=== PATIENT | female | born 1950 | race Caucasian/White ===

== ENCOUNTER 2023-03-07 10:44 | Outpatient (CLI) | payer MEDICARE, OTHER | END 2023-03-07 10:45 | disposition home or self-care (01) | LOC: RAD 10:44 | PROVIDERS: ATTEND Student in an Organized Health Care Education/Training Program | DX: R13.10 Dysphagia, unspecified (principal); R63.30 Feeding difficulties, unspecified; G35 Multiple sclerosis | CPT/HCPCS: 74230 ==

== ENCOUNTER → 2023-09-29 | Day surgery (SDC) | payer MEDICARE, OTHER ==
[~2023-09-29] MED LIST: Lidocaine 1% PF 5 ML VIAL ONE; Sodium Bicarbonate 2.5 MEQ/5 ML VIAL ONE
[2023-09-29 13:49] VITALS: BP 159/77
== END ==
LOC: ULT 12:03
PROVIDERS: ATTEND Student in an Organized Health Care Education/Training Program
PROC: 0GBH3ZX Excision of Right Thyroid Gland Lobe, Percutaneous Approach, Diagnostic (ICD-10-PCS; principal; 2023-09-29)
DX: E04.1 Nontoxic single thyroid nodule (principal)
CPT/HCPCS: 10005; 88173

== ENCOUNTER 2025-06-23 13:08 | Outpatient (CLI) | payer MEDICARE, OTHER | END 2025-06-23 13:09 | disposition home or self-care (01) | LOC: BICMAMMO 13:08 | PROVIDERS: ATTEND Family Medicine | DX: Z12.31 Encounter for screening mammogram for malignant neoplasm of breast (principal); Z78.0 Asymptomatic menopausal state; M81.0 Age-related osteoporosis without current pathological fracture; M85.88 Other specified disorders of bone density and structure, other site; Z98.82 Breast implant status | CPT/HCPCS: 77063; 77067; 77080 ==